=== PATIENT | male | born 1950 | race Caucasian/White ===

== ENCOUNTER 2020-04-24 18:46 | Inpatient (IN) | payer MEDICARE, OTHER, SELFPAY ==
[2020-04-24 18:47] VITALS: BP 130/83; PULSE 88; PULSE 93; RESP 16; TEMP 35.9; O2SAT 100; BMI 23.5
--- NOTE | 2020-04-24 19:38 | ED.DCSUM_ITS ---
History of Present Illness Chief Complaint: Wound Detail of Chief Complaint: Hemorrhagic blister dorsal left thumb IP joint Informant: Patient Onset: Days Context: Gradual Onset Timing: Continuous Quality: Injury gardening several days ago Location: Hemorrhagic blister dorsal left thumb Current Severity: Moderate Maximum Severity: Moderate Worsened by: Possible infection Relieved by: Nothing Associated Symptoms: Increasing size Narrative: Patient is 69-year-old [id number] male presents with injury to his left thumb while gardening several days ago. He had a small dot. He then developed a area of swelling. He was placed on cephalexin. His primary care physician prescribed doxycycline today. He was instructed to follow-up with a surgeon for evaluation and possible drainage. He denies fever, chills night sweats. He is not diabetic. He is on no immunosuppressive meds. He is on no anticoagulant. He denies paresthesia, anesthesia or motor weakness. He complains of range of motion because of swelling. Prior similar symptoms: Yes Recent Illness/Hospitalization: Yes - Past Medical History (1) No significant past medical history Status: Acute Past Medical History - Allergies and Home Meds Allergies/Adverse Reactions: Allergies Sulfa (Sulfonamide Antibiotics) Adverse Reaction (Verified 04/24/20 19:09) HEADACHE headache Primary Care Physician: Gena Paul MD [Primary Care Provider] - Prior records reviewed: No Surgical History: tonsillectomy, - - Thyroid biopsy Lives: Spouse/ Significant Other Smoking Status: Never smoker Alcohol: Rare Drugs: None Review of Systems General: Denies: Chills, Fever, Malaise, Subjective, Sweats Cardiovascular: Denies: Chest pain Respiratory: Denies: Dyspnea, Cough, Sputum Gastrointestinal: Denies: Nausea, Vomiting Musculoskeletal: Reports: Swelling, Extremity Pain Skin: Reports: Wounds Neurological: Denies: Weakness, Parasthesia Hematologic: Denies: Easy bruising, Easy bleeding Physical Exam Vital Signs/Narrative: Vital Signs Temp Pulse Resp BP Pulse Ox 04/24/20 18:47 96.6 F L 88 16 130/83 H 100 Inital Vital Signs reviewed: Yes General: Well nourished, Well developed, No Acute Distress Head: Normocephalic, Atraumatic Eyes: Perrl, EOMI Cardiovascular: Regular rate, Regular rhythm Respiratory: No distress Extremities: No edema, Tenderness - Pain ovation over the hemorrhagic blister. There is swelling of the thumb and slight erythema. There is no induration. There is no lymphangitis. There is no lymphadenopathy.. Negative for: Nontender Skin: Normal color, Rash Neurological: Alert, Oriented x3, Cranial nerves II-XII grossly intact, Normal Strength, Normal Sensation Psychological: Normal affect Procedures Procedure(s): She has what appears to be a superficial hemorrhagic blister. An 11 blade was used to masterson the hemorrhagic blister. There was serosanguineous to bloody drainage. It did not appear purulent. There is still area of fluctuance proximal portion of the blister. The area involvement is the size of a nickel. He is able to extend and flex with no pain in the IP joint. Sensa tion is normal. There is no subungual hematoma or infection of noted under the nail. Since there is an area of fluctuance the thumb was anesthetized by metacarpal block. Incision was made with 11 blade with blunt dissection. More bloody material drained. Did not appear infected. ED Disposition - Plan for ED Patient: Disposition: Home or Assisted Living Diagnosis: Hemorrhagic blister thumb Instructions: ED Wound Puncture General Referrals: Gena Paul MD [Primary Care Provider] - 2 Days for wound check Additional Instructions: 1. Take doxycycline as instructed until gone 2. Do not remove dressing for 24 hours. 3. Change dressing 2-3 times a day 4. If you develop fever and or chills return to the emergency department or see your doctor 5. If you have a red streak going up your thumb into your hand return to the emergency department
[2020-04-24] MEDS: Lidocaine 1% (20 ml mdv) 20 ML Vial INFILT (20:07)
[2020-04-24 23:27] LABS: Absolute Lymphocyte Count 0.62 X10^3/uL (0.83-4.51); Absolute Neutrophil Count 15.4 X10^3/uL (2.0-7.7); Basophil# 0.06 X10^3/uL; Basophil% 0.3 % (0-1); Eosinophil# 0.13 X10^3/uL; Eosinophils% 0.7 % (0-5); Hematocrit 45.3 % (40-54); Hemoglobin 15.2 g/dL (13.0-16.5); Lymphocyte # 0.62 X10^3/ul (4.0); Lymphocyte % 3.5 % (19-41); Mean Corp Hgb Conc 33.6 g/dL (32-36); Mean Corpuscular Hgb 31.5 pg (27.0-32.0); Mean Platelet Vol. 10.5 fl (6.2-12.0); Monocyte% 6.7 % (0-10); NRBC Flagged by Analyzer 0 % (0-5); Neutrophil # 15.41 X10^3/uL (2.7-7.7); Neutrophil % 86.6 % (47-70); Platelet Count 207 K/mm3 (150-450); RBC Distribution Width CV 11.9 % (11.6-14.6); RBC Distribution Width SD 41.5 fl (35.1-43.9); Red Blood Count 4.82 M/mm3 (4.6-6.2); White Blood Count 17.8 K/mm3 (4.4-11.0)
[2020-04-24 23:38] LABS: Anion Gap 5 (5-15); BUN 18 mg/dL (7-18); Chloride 103 mmol/L (98-107); EST Glomerular Filtration Rate 79 mL/min (>60); Est Glom Filt Rate - Afr Amer 96 mL/min (>60); Estimated Creatinine Clearance 81.01 ml/min; Glucose 164 mg/dL (74-106); Potassium 3.8 mmol/L (3.5-5.1); Sodium Level 135 mmol/L (136-145)
[2020-04-25] VITALS (17 sets, daily range): BP systolic 88–115; BP diastolic 53–76; PULSE 59–109; RESP 16–18; TEMP 36.6–37.4; O2SAT 95–100; BMI 22.6; BMI 22.7
[2020-04-25 00:06] LABS: Lactic Acid 2.1 mmol/L (0.4-1.9)
--- NOTE | 2020-04-25 00:08 | ED.VISSUMM ---
- ER Visit Summary Date of Service: 04/25/20 Chief Complaint: [] History of Present Illness: The patient is a 69 M [] Physical Examination: [] Test Results: [] Emergency Department Course and Treatment: [] Treatment Plan: [] Disposition: [] Impression: [] This note was generated with [employer] dictation software. It may contain incorrect words, spelling, and punctuation that were not noted in review of the chart prior to signing ED Disposition - Plan for ED Patient: Disposition: Acute Care Hospital [facility] Diagnosis: Hemorrhagic blister thumb, Severe sepsis, Abscess of thumb, left, Lymphangitis of upper extremity Instructions: ED Wound Puncture General Referrals: Gena Paul MD [Primary Care Provider] - 2 Days for wound check Additional Instructions: 1. Take doxycycline as instructed until gone 2. Do not remove dressing for 24 hours. 3. Change dressing 2-3 times a day 4. If you develop fever and or chills return to the emergency department or see your doctor 5. If you have a red streak going up your thumb into your hand return to the emergency department
--- NOTE | 2020-04-25 00:11 | HP.PCM_ITS ---
Problem List (1) Severe sepsis Status: Acute (2) Abscess of thumb, left Status: Acute (3) Lymphangitis of upper extremity Status: Acute (4) Hyperglycemia Status: Acute (5) Migraines Status: Chronic Qualifiers: Migraine type: unspecified Status migrainosus presence: without status migrainosus Intractability: not intractable Qualified Code(s): G43.909 - Migraine, unspecified, not intractable, without status migrainosus History of Present Illness Date of Admission: 04/25/20 Chief Complaint: L thumb infection The patient is a 69 y/o M w/ PMHx: Migraines noting he only takes sumatriptan ~ 2x annually otherwise healthy, retired from IT, 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[employer] who presents to the [facility] ED on 04/25/20 with history of guarding several days prior with small break in the skin from unclear source, possibly something in the soil versus thorn with increased swelling to the left thumb with outpatient evaluation with PCP with placed on that time of Keflex with continued increase size and discomfort with onset small hemorrhagic appearing blister with PCP reevaluation on day of ED presentation with doxycycline administration with instruction to follow-up with a surgeon however patient had continued worsening discomfort prompting eventual ED presentation on 04/24/2020 with I&D at that time and discharged to home on continue doxycycline however upon discharge within 2 hours patient had onset of red streaking up his left arm prompting ED return. Patient denies having had any fever or chills associated. Patient rated pain as severe, sharp, 10 out of 10 with I&D but otherwise has had dull aching and notes it has been difficult to sleep. Work-up in the ED included temporal T 96.6, heart rate 88, BP 130/83, respiratory rate 16, on a percent on room air, CBC with WC 17.8, hemoglobin 15.2, platelet 207 with significant left shift and concurrent noted lymphopenia, BMP with sodium 135, glucose 164, lactic acid 2.1, blood culture x2 pending per ED. In the ED patient administered Unasyn, vancomycin. Past Medical History Past Medical History (Chronic Problems): Chronic Problems Migraines (Chronic) Allergies Sulfa (Sulfonamide Antibiotics) Adverse Reaction (Verified 04/24/20 19:09) HEADACHE headache Home Medications: Ambulatory Orders Medication Instructions Recorded Doxycycline 100 mg PO BID 11/19/20 Surgical History: tonsillectomy, - - Thyroid biopsy, tonsillectomy, vasectomy, intervention for kidney stones. Lives: Spouse/ Significant Other Smoking Status: Never smoker Tobacco Use: Non-smoker Alcohol: Occasional - Patient notes 1 alcoholic beverage each night with dinner. Drugs: None - *Family History Maternal History Items: - - Patient notes a maternal family history of at age 65 secondary to brain tumor. Paternal History Items: - - Patient notes paternal family history of borderline diabetes, father age 93. Sibling History Items: Heart Disease - Patient notes a brother with a history of cardiac disease. Review of Systems Constitutional: Reports: Malaise, Weakness, Fatigue. Denies: Anorexia, Chills, Fever, Weight Change HEENT: Reports: Head Aches. Denies: Sinus Congestion, Sinus Drainage Cardiovascular: Denies: Chest Pain, Palpitations Respiratory: Denies: Cough, Shortness of breath at rest, Sputum production Gastrointestinal: Denies: Abdominal Pain, Nausea, Vomiting Genitourinary: Denies: Dysuria Musculoskeletal: Reports: Hand Pain, Joint Pain, Joint stiffness, Joint swelling, Joint Tenderness Skin: Reports: Skin Changes, Wounds. Denies: Rash Neurological: Denies: Numbness, Tingling, Focal weakness Psychiatric: Denies: Anxiety, Depression, Homicidal Ideations, Suicidal Ideations Hematologic/ Lymphatic: Denies: Easy Bruising, Easy Bleeding VTE Information - Inpt Only VTE Present on Admission: No VTE Mechan Device Prophylaxis: SCD's VTE Pharm Prophylaxis ordered?: Yes Patient Problems: Active and Suspected Problems No significant past medical history (Acute) Severe sepsis (Acute) Abscess of thumb, left (Acute) Lymphangitis of upper extremity (Acute) Subjective: Patient seated upright in ED bed, fatigued appearance otherwise no acute distress. Objective: Physical Examination: General: awake, alert, oriented x 3 and cooperative, seated upright in the ED bed, fatigued but no acute distress. Skin: normal color, turgor, no icterus, cyanosis except significant left thumb edema, swelling, erythema, status post recent unroofing of hemorrhagic blister per ED, red streaking up the arm to the mid bicep. HEENT: AT/NC, EOMI, PERRLA, mildly dry MM, no carotid bruits or JVD noted. Lungs: CTA bilaterally, moderate effort, mild decrease BL bases, no rales, ronchi or wheezing. Heart: Regular rate and rhythm; no gallop, rub audible. Abdomen: soft, NTTP, ND, normal BS, no HSM. Extremities: no cyanosis or clubbing, see skin. Neurological: patient awake, alert, oriented as noted; cognitive function intact; pupils equally reactive to light and accomodation; cranial nerves II-XII grossly normal, moving all 4 extremities, no focal deficits, strength mildly global decrease secondary to acute presentation as noted. Psychiatric: affect appears mildly fatigued otherwise normal, no acute evidence of depressive or anxiety feelings. - Physical Exam Vitals/I&O's: Vital Signs Temp Pulse Resp BP Pulse Ox 96.6 F L 88 16 130/83 H 100 04/24/20 18:47 04/24/20 18:47 04/24/20 18:47 04/24/20 18:47 04/24/20 18:47 Oxygen Delivery Method Room Air Weight: 178 lb 2.136 oz Body Mass Index (BMI) 23.5 Intake and Output for Last 24 Hours 04/23/20 04/24/20 04/25/20 23:59 23:59 23:59 Intake Total 112 / 112 Balance 112 / 112 Laboratory Results 04/24/20 23:05: WBC 17.8 H, RBC 4.82, Hgb 15.2, Hct 45.3, MCV 94.0, MCH 31.5, MCHC 33.6, RDW Std Deviation 41.5, RDW Coeff of Fredrick 11.9, Plt Count 207, MPV 10.5, Immature Gran % (Auto) 2.200 H, Neut % (Auto) 86.6 H, Lymph % (Auto) 3.5 L , Sutter % (Auto) 6.7, Eos % (Auto) 0.7, Baso % (Auto) 0.3, Absolute Neuts (auto) 15.4 H, Absolute Lymphs (auto) 0.62 L, Nucleated RBC % 0 04/24/20 23:05: Sodium 135 L, Potassium 3.8, Chloride 103, Carbon Dioxide 27.0, Anion Gap 5, BUN 18, Creatinine 1.00, Estim Creat Clear Calc 81.01, Est GFR (MDRD) Af Amer 96, Est GFR (MDRD) Non-Af 79, BUN/Creatinine Ratio 18.0, Glucose 164 H, Calcium 9.0 04/24/20 23:05: Lactic Acid 2.1 H* Current Medications Vancomycin HCl 2,000 mg/ (Sodium Chloride) 540 mls @ 250 mls/hr IV X1 ONE Stop: 04/25/20 01:14 Last Admin: 04/25/20 00:07 Dose: 250 mls/hr Documented by: Assessment/Plan All Active Problems No significant past medical history (Acute) Severe sepsis (Acute) Abscess of thumb, left (Acute) Lymphangitis of upper extremity (Acute) Hyperglycemia (Acute) The patient is a 69 y/o M w/ PMHx: Migraines noting he only takes sumatriptan ~ 2x annually otherwise healthy, retired from IT, 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 1. Severe Sepsis secondary to Acute L Thumb Cellulitis and hemorrhagic blister/abscess: We will admit to MedSurg on telemetry, and lactic acid, continue hydration, maintain n.p.o. status in case of OR needs, will consult Dr. Rosas, continue vancomycin and Unasyn therapy, will obtain wound culture and wound MRSA PCR and de-escalate if appropriate, continue as needed oral and IV pain regimen, encourage elevation of left upper extremity above heart when seated in bed, dressing changes per surgery discretion with wound care consultation. 2. Hyperglycemia: Admission glucose 164, suspect stress response but to be cautious will obtain hemoglobin A1c. 3. Hyponatremia, mild: Possible mild hyponatremia secondary to acute presentation with mild hypokalemia, will judiciously hydrate especially given n.p.o. status, repeat chemistry in AM. 4. Chronic migraines: We will hold patient sumatriptan as he notes he only t akes this occasionally, may administer agent if onset migraine. 5. DVT prophylaxis: Criss Zhang. Inpatient E&M: 35913 Init Hosp L3
--- NOTE | 2020-04-25 01:26 | PCM.RX.CS ---
Consult Pharmacy has been consulted to manage selected antiobiotic: Vancomycin Type of Consult: New start Suspected Infection: Sepsis, Skin/Soft tissue, Osteomyelitis Labs: Sodium 135 mmol/L (136-145) L 04/24/20 23:05 Potassium 3.8 mmol/L (3.5-5.1) 04/24/20 23:05 Chloride 103 mmol/L (98-107) 04/24/20 23:05 Carbon Dioxide 27.0 mmol/L (21.0-32.0) 04/24/20 23:05 Anion Gap 5 (5-15) 04/24/20 23:05 BUN 18 mg/dL (7-18) 04/24/20 23:05 Creatinine 1.00 mg/dL (0.70-1.30) 04/24/20 23:05 Est GFR (MDRD) Af Amer 96 mL/min (>60) 04/24/20 23:05 Est GFR (MDRD) Non-Af 79 mL/min (>60) 04/24/20 23:05 BUN/Creatinine Ratio 18.0 RATIO (-20) 04/24/20 23:05 Glucose 164 mg/dL (74-106) H 04/24/20 23:05 Weight used for dosin.8 kg Estimated Creatinine Clearance: 81 Goal Trough: 10-15 mcg/mL Pharmacy Plan for Drug Dosing: Pharmacy Service will continue to monitor and adjust dosing as required. Medications Vancomycin HCl (Vancomycin) 1,000 mg in 200 mls @ 200 mls/hr IV Q12H BECCA Discontinued Medications Vancomycin HCl 2,000 mg/ (Sodium Chloride) 540 mls @ 250 mls/hr IV X1 ONE Stop: 04/25/20 01:14 Last Admin: 04/25/20 00:07 Dose: 250 mls/hr Documented by: Follow-Up Labs: Trough Vancomycin Labs to be done on [date and time ordered]: 04/26 @ 0930
[2020-04-25] MEDS: 0.9% Normal Saline 1,000 ML 125 ML IV (02:00)
[2020-04-25 03:46] LABS: Reflex Lactate? Y
[2020-04-25 04:04] LABS: M R Staph aureus DNA By PCR Negative (Negative); Probe Check PASS; Specimen Processing Control PASS; Staph aureus DNA By PCR NEGATIVE (Negative)
[2020-04-25 04:44] LABS: Absolute Lymphocyte Count 0.81 X10^3/uL (0.83-4.51); Absolute Neutrophil Count 11.1 X10^3/uL (2.0-7.7); Basophil# 0.03 X10^3/uL; Basophil% 0.2 % (0-1); Eosinophil# 0.31 X10^3/uL; Eosinophils% 2.3 % (0-5); Hematocrit 42.8 % (40-54); Hemoglobin 14.2 g/dL (13.0-16.5); Lymphocyte # 0.81 X10^3/ul (4.0); Mean Corp Hgb Conc 33.2 g/dL (32-36); Mean Corpuscular Hgb 31.5 pg (27.0-32.0); Mean Corpuscular Volume 94.9 fL (80-94); Mean Platelet Vol. 10.2 fl (6.2-12.0); Monocyte# 1.24 X10^3/uL; Monocyte% 9.2 % (0-10); NRBC Flagged by Analyzer 0 % (0-5); Neutrophil # 11.07 X10^3/uL (2.7-7.7); Platelet Count 193 K/mm3 (150-450); RBC Distribution Width CV 11.9 % (11.6-14.6); RBC Distribution Width SD 41.3 fl (35.1-43.9); Red Blood Count 4.51 M/mm3 (4.6-6.2); White Blood Count 13.5 K/mm3 (4.4-11.0)
[2020-04-25 05:01] LABS: ALB/GLOB Ratio 1.2 RATIO (0.9-2.4); AST(SGOT) 17 U/L (15-37); Alanine Aminotransfer ALT/SGPT 23 U/L (16-61); Albumin, Serum 3.3 g/dL (3.2-5.0); Alkaline Phosphatase 78 U/L (45-117); Anion Gap 3 (5-15); BUN 15 mg/dL (7-18); BUN/Creat Ratio 18.5 RATIO (10-20); Calcium,Total 8.3 mg/dL (8.5-10.1); Chloride 106 mmol/L (98-107); Creatinine, Serum 0.81 mg/dL (0.70-1.30); EST Glomerular Filtration Rate 101 mL/min (>60); Est Glom Filt Rate - Afr Amer 122 mL/min (>60); Estimated Creatinine Clearance 97.51 ml/min; Globulin 2.8 g/dL (2.2-4.2); Glucose 104 mg/dL (74-106); Protein, Total 6.1 g/dL (6.4-8.2); Sodium Level 138 mmol/L (136-145)
[2020-04-25 05:04] LABS: Lactic Acid 0.9 mmol/L (0.4-1.9)
[2020-04-25 07:19] LABS: Hemoglobin A1c 5.4 % (3.8-5.6)
--- NOTE | 2020-04-25 10:15 | CASEMGMT ---
RN CM Face to Face with patient for initial transition planning/care coordination assessment. RN CM introduced self and role at [facility]. Patient lying in bed, alert and oriented. Patient willing to participate in assessment and is able to answer all questions appropriately. Care providers, pharmacy, and demographics verified. Patient wishes to discharge home, denies need for home health at this time. Patient states he has no further needs or concerns at this time. CM to follow for discharge planning needs that may arise. PCP: [facility] Specialists: none [facility] Prescription Benefit: yes Living Will/HPOA: yes, Portia Mann LNOK: Living Arrangements: Patient lives with in a 2 story townhouse with 1 step to enter the home. Bed and bath on first floor. Patient states he is independent at home. Transportation: self/ DME/HHC: Pateint denies DME or previous HHC. Disposition Plan: Patient to discharge home with family support and follow-up plans. Aggie MAX, RN, CM
--- NOTE | 2020-04-25 11:40 | CON.PCM_ITS ---
Reason for Consult Date of Consultation: 04/25/20 Reason for Consultation: Necrotic left thumb abscess. REFERRING PHYSICIAN: Dr. Palacios. HAND HOSE CUTTER: Dr. Rosas. History of Present Illness: The patient is a 69 y/o M presented to the ED with increasing pain and redness and swelling left thumb. He was initially seen by his PCP who placed him on Keflex and then Doxycycline. The symptomatology worsened which prompted his visit to the ED. His WBC was 17.8. An I&D was done. He was started on Vancomycin and Unasyn. He denies trauma. 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 I was asked to evaluate this patient for surgical options for treatment. Past Medical History Past Medical History (Chronic Problems): Chronic Problems Migraines (Chronic) Allergies Sulfa (Sulfonamide Antibiotics) Adverse Reaction (Verified 04/24/20 19:09) HEADACHE headache Home Medications: Ambulatory Orders Medication Instructions Recorded Doxycycline 100 mg PO BID 04/24/20 Ascorbic Acid [Vitamin C] 1,000 mg PO BIDCM 04/25/20 Multivitamin 1 ea PO DAILY 04/25/20 Sumatriptan Succinate [Imitrex] 50 mg PO .X1 PRN 04/25/20 Surgical History: tonsillectomy, - - Thyroid biopsy, tonsillectomy, vasectomy, intervention for kidney stones. Lives: Spouse/ Significant Other Smoking Status: Never smoker Tobacco Use: Non-smoker Alcohol: Occasional - Patient notes 1 alcoholic beverage each night with dinner. Drugs: None - *Family History Maternal History Items: - - Patient notes a maternal family history of at age 65 secondary to brain tumor. Paternal History Items: - - Patient notes paternal family history of borderline diabetes, father age 93. Sibling History Items: Heart Disease - Patient notes a brother with a history of cardiac disease. Review of Systems Comment: Constitutional: Reports: Malaise, Weakness, Fatigue. Denies: Anorexia, Chills, Fever, Weight Change. HEENT: Reports: Head Aches. Denies: Sinus Congestion, Sinus Drainage. Cardiovascular: Denies: Chest Pain, Palpitations. Respiratory: Denies: Cough, Shortness of breath at rest, Sputum production. Gastrointestinal: Denies: Abdominal Pain, Nausea, Vomiting. Genitourinary: Denies: Dysuria. Musculoskeletal: Reports: Hand Pain, Joint Pain, Joint stiffness, Joint swelling, Joint Tenderness. Skin: Reports: Skin Changes, Wounds. Denies: Rash. Neurological: Denies: Numbness, Tingling, Focal weakness. Psychiatric: Denies: Anxiety, Depression, Homicidal Ideations, Suicidal Ideations. Hematologic/ Lymphatic: Denies: Easy Bruising, Easy Bleeding Patient Problems: Active and Suspected Problems No significant past medical history (Acute) Severe sepsis (Acute) Abscess of thumb, left (Acute) Lymphangitis of upper extremity (Acute) Hyperglycemia (Acute) - Physical Exam Vitals/I&O's: General: awake, alert, oriented x 3 and cooperative. Skin: normal color, turgor, no icterus, cyanosis except significant left thumb edema, swelling, erythema, status post recent unroofing of hemorrhagic blister per ED, red streaking up the arm to the mid bicep. HEENT: EOMI, PERRLA, mildly dry MM. Neck: Supple, nontender. No cervical adenopathy. Lungs: Clear to auscultation. Heart: Regular rate and rhythm. Abdomen: soft, nondistended. Extremities: no cyanosis or clubbing, mild edema left thumb. Patient is right hand dominant. On the dorsum left thumb at the IP joint is a necrotic abscess. Measures 2.5 x 2 cm. Fluctuant. Redness initially extended past the elbow onto the the distal arm. Much improved today. He can flex and extend at the IP joint without difficulty. No sensory deficits. Fingers are warm with good capillary refill. Radial pulses are palpable. No axillary adenopathy. Neurological: cranial nerves II-XII grossly normal/ Psychiatric: affect appears mildly fatigued otherwise normal, no acute evidence of depressive or anxiety feelings. Vital Signs Temp Pulse Resp BP Pulse Ox 98.5 F 66 16 110/74 100 04/25/20 10:03 04/25/20 10:03 04/25/20 10:03 04/25/20 10:03 04/25/20 10:03 Oxygen Delivery Method Room Air Weight: 171 lb 11.841 oz Body Mass Index (BMI) 22.6 Intake and Output for Last 24 Hours 04/23/20 04/24/20 04/25/20 23:59 23:59 23:59 Intake Total 1232.75 / 1232.75 Output Total 950 / 950 Balance 282.75 / 282.75 Laboratory Results 04/24/20 23:05: WBC 17.8 H, RBC 4.82, Hgb 15.2, Hct 45.3, MCV 94.0, MCH 31.5, MC HC 33.6, RDW Std Deviation 41.5, RDW Coeff of Fredrick 11.9, Plt Count 207, MPV 10.5, Immature Gran % (Auto) 2.200 H, Neut % (Auto) 86.6 H, Lymph % (Auto) 3.5 L, [place] % (Auto) 6.7, Eos % (Auto) 0.7, Baso % (Auto) 0.3, Absolute Neuts (auto) 15.4 H, Absolute Lymphs (auto) 0.62 L, Nucleated RBC % 0 04/24/20 23:05: Sodium 135 L, Potassium 3.8, Chloride 103, Carbon Dioxide 27.0, Anion Gap 5, BUN 18, Creatinine 1.00, Estim Creat Clear Calc 81.01, Est GFR (M DRD) Af Amer 96, Est GFR (MDRD) Non-Af 79, BUN/Creatinine Ratio 18.0, Glucose 164 H, Calcium 9.0 04/24/20 23:05: Lactic Acid 2.1 H* 04/25/20 02:00: S.aureus Protein A PCR NEGATIVE, MRSA (PCR) Negative 04/25/20 04:30: WBC 13.5 H, RBC 4.51 L, Hgb 14.2, Hct 42.8, MCV 94.9 H, MCH 31.5, MCHC 33.2, RDW Std Deviation 41.3, RDW Coeff of Fredrick 11.9, Plt Count 193, MPV 10.2, Immature Gran % (Auto) 0.300, Neut % (Auto) 82.0 H, Lymph % (Auto) 6.0 L, [place] % (Auto) 9.2, Eos % (Auto) 2.3, Baso % (Auto) 0.2, Absolute Neuts (auto) 11.1 H, Absolute Lymphs (auto) 0.81 L, Nucleated RBC % 0 04/25/20 04:30: Sodium 138, Potassium 4.0, Chloride 106, Carbon Dioxide 29.0, Anion Gap 3 L, BUN 15, Creatinine 0.81, Estim Creat Clear Calc 97.51, Est GFR (MDRD) Af Amer 122, Est GFR (MDRD) Non-Af 101, BUN/Creatinine Ratio 18.5, Glucose 104, Calcium 8.3 L, Total Bilirubin 2.50 H, AST 17, ALT 23, Alkaline Phosphatase 78, Total Protein 6.1 L, Albumin 3.3, Globulin 2.8, Albumin/Globulin Ratio 1.2 04/25/20 04:30: Hemoglobin A1c 5.4 04/25/20 04:30: Lactic Acid 0.9 Current Medications Acetaminophen (Acetaminophen 325 Mg Tablet) 650 mg PO Q6H PRN PRN PRN Reason: Pain Score 1-10/Temp > 100.7 F Hydralazine HCl (Hydralazine 20 Mg/Ml Vial) 10 mg IV Q4H PRN PRN PRN Reason: SBP > 160 Ampicillin Sodium/Sulbactam (Sodium 3 gm/ Sodium Chloride) 112 mls @ 150 mls/hr IV Q6 BECCA Last Infusion: 04/25/20 06:46 Dose: Infused Documented by: Vancomycin IV Pharmacy to Dose (1 ea/ Sodium Chloride) 500 mls @ 250 mls/hr IV X1 PRN; Protocol PRN Reason: Rx to Dose Vancomycin HCl (Vancomycin) 1,000 mg in 200 mls @ 200 mls/hr IV Q12H BECCA Sodium Chloride () 250 mls @ 15 mls/hr IV .[id number] PRN PRN Reason: Saline Flush Sodium Chloride () 250 mls @ 15 mls/hr IV .[id number] PRN PRN Reason: Additional IVPB Infusion Ondansetron HCl (Ondansetron 4 Mg/2 Ml Vial) 4 mg IV Q8H PRN PRN PRN Reason: NAUSEA/VOMITING Oxycodone HCl (Oxycodone 5 Mg Tablet) 5 mg PO Q4H PRN PRN PRN Reason: Pain Score 4-5 Sodium Chloride (0.9% Saline Lock 10 Ml Syringe) 10 - 40 ml IV UD PRN PRN Reason: SALINE FLUSH Temazepam (Temazepam 15 Mg Capsule) 15 mg PO QHS PRN PRN PRN Reason: INSOMNIA Assessment/Plan All Active Problems Skin necrosis (Acute) No significant past medical history (Acute) Severe sepsis (Acute) Abscess of thumb, left (Acute) Lymphangitis of upper extremity (Acute) Hyperglycemia (Acute) 1. Left thumb abscess with skin necrosis. 2. Lymphangitis. 3. Sepsis. Continue Vancomycin and Unasyn. Patient failed outpatient therapy and developed increasing redness up to his elbow and distal arm which has improved since starting the IV antibiotics. The necrotic tissue needs to be excised and debrided and incision and drainage of the abscess needed. Will leave the wound open and proceed with daily Silver dressing changes. After discharge, followup at the office. If there is a plateau in the healing process, can proceed with delayed closure with skin grafting or skin flap reconstruction. Surgery needs to be done urgently today because of the risk of the abscess extending down to the bone with the risk of osteomyelitis. Also I anticipate the abscess extending down to the tendon which can be weakened by the abscess. A delay in surgery can also lead to stiffness of the thumb which would be problematic with activities of daily living. Surgery will be done today under general anesthesia and tourniquet control. Patient was informed of the risks and complications of the procedure including alternatives to surgery. These were discussed with the patient personally. Patient voices understanding and wishes to proceed. Some of the risks and complications that were discussed included but were not inclusive of failure to diagnose including symptom relief, pain, infection, numbness, stiffness, loss of digit, RSD (CRPS), need for further surgery, contracture, and wound healing problems. Anticipate increased metabolic demands from the infection. Will check a Prealbumin and encourage nutritional supplementation with protein to help the healing process. Will encourage range of motion exercises to minimize stiffness. If stiffness occurs, will need OT for range of motion exercises, strengthening, and edema management. We discussed the current risks associated with COVID-19. While it is understood that there is a community spread of COVID-19, the risk of citlali COVID-19 while at [facility] ([facility]) is very low; however, the risk cannot be completely mitigated because of the community spread of the disease. We discussed in detail the risk of exposure to and/or potential harm posed by the COVID-19 virus with having a surgery/procedure at this time versus the risk of delaying the surgery/procedure. It is not possible to know either the risk of delaying the surgery or procedure or chance of getting an infection with perfect accuracy, but a joint decision was made to proceed at this time with the scheduled surgery/procedure as indicated on the consent form. Patient was notified that we will need to comply with any screening or testing [facility] wishes to perform or that surgery may be delayed for any positive results. Discussed with the patient that I was tested for COVID-19 on 12/06/19 which was negative and on 12/20/19 which was negative and on 01/03/20 which was negative and on 01/17/20 which was negative and on 01/31/20 which was negative and on 02/21/20 which was negative and on 03/13/20 which was negative and on 04/17/20 which was negative. My testing regimen at this time is to be COVID-19 tested every 2 w eeks or so. Procedure Criteria Procedure Type: Elective COVID Risk Discussion: The surgeon/proceduralist and patient have discussed in detail the risk of exposure to and/or potential harm posed by the COVID-19 virus with having a surgery/procedure at this time versus the risk of delaying the surgery/procedure. It is not possible to know either the risk of delaying the surgery or procedure or chance of getting an infection with perfect accuracy, but a joint decision was made between the patient and the surgeon/proceduralist to proceed at this time with the scheduled surgery/procedure as indicated on the consent form. Inpatient E&M: 41719 Init Hosp L3 - -57 Modifier ICD-10 - L02.512, I96, I89.1, A41.9
--- NOTE | 2020-04-25 11:51 | EKG12_ITS ---
Test Reason : PRE OP Blood Pressure : / mmHG Vent. Rate : 070 BPM Atrial Rate : 070 BPM P-R Int : 166 ms QRS Dur : 124 ms QT Int : 422 ms P-R-T Axes : 027 062 011 degrees QTc Int : 455 ms Normal sinus rhythm Normal ECG No previous ECGs available Confirmed by JOLLY BADILLO, TOMAS ([id number]), editor news JAJA ROMERO ([id number]) on 04/29/2020 9:39:47 AM Referred By: Alex Rosas Confirmed By:TOMAS AZEVEDO MD
--- NOTE | 2020-04-25 11:58 | NURSING ---
wound photo: left thumb
[2020-04-25] MEDS: Vancomycin IV 1,000 MG/200 ML BAG 200 MG IV (12:14)
[2020-04-25 14:30] LABS: Probe Check PASS; Specimen Processing Control PASS
[2020-04-25] MEDS: Lidocaine 1% /Epi 1:100 (20ml) 20 ML Vial (15:39)
--- NOTE | 2020-04-25 15:40 | OP.PCM_ITS ---
Report of Operation Date of Procedure: 04/25/20 Pre-Operative Diagnosis: 1. Left thumb abscess with skin necrosis. 2. L ymphangitis. 3. Sepsis. Post-Operative Diagnosis: Same. Surgery/Procedure Performed:: Surgical preparation dorsum left thumb at IP joint with incision and drainage and excisional debridement necrotic abscess (2.76 cm2). Description of Surgical Findings:: The patient is a 69 y/o M presented to the ED with increasing pain and redness and swelling left thumb. He was initially seen by his PCP who placed him on Keflex and then Doxycycline. The symptomatology worsened which prompted his visit to the ED. His WBC was 17.8. An I&D was done. He was started on Vancomycin and Unasyn. He denies trauma. 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 I was asked to evaluate this patient for surgical options for treatment. Patient was informed of the risks and complications of the procedure including alternatives to surgery. These were discussed with the patient personally. Patient voices understanding and wishes to proceed. Some of the risks and complications that were discussed included but were not inclusive of failure to diagnose including symptom relief, pain, infection, numbness, stiffness, loss of digit, RSD (CRPS), need for further surgery, contracture, and wound healing problems. Size of defect dorsum left thumb at IP joint - 2.3 x 1.2 cm. telecom coordinator: None Type of Anesthesia:: General Specimen's removed: Left thumb necrotic abscess to Pathology and Microbiology. Drains: None. Estimated Blood Loss (mL): 5 ml. Description of Procedure: Patient was taken to OR in supine position and was placed under general anesthesia. The left hand was prepped and draped in the usual fashion. SCD's were placed for DVT prophylaxis. Perioperative antibiotics were given intravenously. For the procedure, I wore an N95 mask and wore proper eyewear protection. Using xylocaine with epinephrine, a digital metacarpal block was administered for postoperative pain relief. A tourniquet was placed but will only be inflated if there is a bleeding issue during the dissection. After waiting 5 minutes for the anesthetic to take effect, I proceeded with an incision and drainage around the necrotic abscess dorsum left thumb at IP joint. Some pus was seen in the subcutaneous tissue. Some fat necrosis was seen. The necrotic skin and fat necrosis was excised and debrided. A curette was also used to debride the depth of the infection. The infection extended down to the extensor tendon. No involvement of the joint was noted. Some of the soft tissue was sent to Pathology for analysis to rule out carcinoma and to Microbiology for culture. A positive culture will necessitate antibiotic therapy. The wound was irrigated with saline. Hemostasis was obtained with electrocautery. I did not need to use the tourniquet. The size of the wound after incision and drainage and excisional debridement was 2.3 x 1.2 cm. The wound was dressed with Mepitel nonadherent dressing followed by 4x4 gauze and Betadine and dry Kerlix gauze and a compression kayleigh wrap. Patient tolerated the procedure well and was sent to PACU in satisfactory condition. Patient will be sent upstairs for continued postop care. Will begin Silver dressing changes tomorrow. Grafts/Implants Used: None. - Complications None. - Admit VTE Documentation VTE Present on Admission: No VTE Mechan Device Prophylaxis: SCD's VTE Pharm Prophylaxis ordered?: No Surgery Charges CPT - 72576 ICD-10 - L02.512, I96, S61.002A, A41.9, I89.1 15878 S61.002A, L02.512, I96, A41.9, I89.1
--- NOTE | 2020-04-25 17:01 | PCM.PN.ID ---
Patient Problems: Active and Suspected Problems No significant past medical history (Acute) Severe sepsis (Acute) Abscess of thumb, left (Acute) Lymphangitis of upper extremity (Acute) Hyperglycemia (Acute) - Physical Exam Vitals/I&O's: Vital Signs Temp Pulse Resp BP Pulse Ox 97.8 F 59 L 16 99/57 L 98 04/25/20 16:30 04/25/20 16:30 04/25/20 16:30 04/25/20 16:30 04/25/20 16:30 Oxygen Delivery Method Room Air Weight: 77.9 kg Body Mass Index (BMI) 22.6 Intake and Output for Last 24 Hours 04/23/20 04/24/20 04/25/20 23:59 23:59 23:59 Intake Total 1544.75 / 1544.75 Output Total 950 / 950 Balance 594.75 / 594.75 Microbiology Past 72 Hours 04/25/20 12:20 Mucosa - Nose SARS-CoV-2 Antigen (Rapid) - Final SARS-CoV-2 (COVID 19) 04/25/20 02:00 Wound Abcess - Finger Gram Stain - Final Laboratory Results 04/24/20 23:05: WBC 17.8 H, RBC 4.82, Hgb 15.2, Hct 45.3, MCV 94.0, MCH 31.5, MCHC 33.6, RDW Std Deviation 41.5, RDW Coeff of Fredrick 11.9, Plt Count 207, MPV 10.5, Immature Gran % (Auto) 2.200 H, Neut % (Auto) 86.6 H, Lymph % (Auto) 3.5 L, [place] % (Auto) 6.7, Eos % (Auto) 0.7, Baso % (Auto) 0.3, Absolute Neuts (auto) 15.4 H, Absolute Lymphs (auto) 0.62 L, Nucleated RBC % 0 04/24/20 23:05: Sodium 135 L, Potassium 3.8, Chloride 103, Carbon Dioxide 27.0, Anion Gap 5, BUN 18, Creatinine 1.00, Estim Creat Clear Calc 81.01, Est GFR (MDRD) Af Amer 96, Est GFR (MDRD) Non-Af 79, BUN/Creatinine Ratio 18.0, Glucose 164 H, Calcium 9.0 04/24/20 23:05: Lactic Acid 2.1 H* 04/25/20 02:00: S.aureus Protein A PCR NEGATIVE, MRSA (PCR) Negative 04/25/20 04:30: WBC 13.5 H, RBC 4.51 L, Hgb 14.2, Hct 42.8, MCV 94.9 H, MCH 31.5, MCHC 33.2, RDW Std Deviation 41.3, RDW Coeff of Fredrick 11.9, Plt Count 193, MPV 10.2, Immature Gran % (Auto) 0.300, Neut % (Auto) 82.0 H, Lymph % (Auto) 6.0 L, [place] % (Auto) 9.2, Eos % (Auto) 2.3, Baso % (Auto) 0.2, Absolute Neuts (auto) 11.1 H, Absolute Lymphs (auto) 0.81 L, Nucleated RBC % 0 04/25/20 04:30: Sodium 138, Potassium 4.0, Chloride 106, Carbon Dioxide 29.0, Anion Gap 3 L, BUN 15, Creatinine 0.81, Estim Creat Clear Calc 97.51, Est GFR (MDRD) Af Amer 122, Est GFR (MDRD) Non-Af 101, BUN/Creatinine Ratio 18.5, Glucose 104, Calcium 8.3 L, Total Bilirubin 2.50 H, AST 17, ALT 23, Alkaline Phosphatase 78, Total Protein 6.1 L, Albumin 3.3, Globulin 2.8, Albumin/Globulin Ratio 1.2 04/25/20 04:30: Hemoglobin A1c 5.4 04/25/20 04:30: Lactic Acid 0.9 04/25/20 12:20: COVID-19 (GEORGE) Negative Current Medications Acetaminophen (Acetaminophen 325 Mg Tablet) 650 mg PO Q6H PRN PRN PRN Reason: Pain Score 1-10/Temp > 100.7 F Hydralazine HCl (Hydralazine 20 Mg/Ml Vial) 10 mg IV Q4H PRN PRN PRN Reason: SBP > 160 Ampicillin Sodium/Sulbactam (Sodium 3 gm/ Sodium Chloride) 112 mls @ 150 mls/hr IV Q6 BECCA Last Infusion: 04/25/20 14:07 Dose: Infused Documented by: Vancomycin IV Pharmacy to Dose (1 ea/ Sodium Chloride) 500 mls @ 250 mls/hr IV X1 PRN; Protocol PRN Reason: Rx to Dose Vancomycin HCl (Vancomycin) 1,000 mg in 200 mls @ 200 mls/hr IV Q12H BECCA Last Infusion: 04/25/20 13:29 Dose: Infused Documented by: Sodium Chloride () 250 mls @ 15 mls/hr IV .[id number] PRN PRN Reason: Saline Flush Sodium Chloride () 250 mls @ 15 mls/hr IV .[id number] PRN PRN Reason: Additional IVPB Infusion Ondansetron HCl (Ondansetron 4 Mg/2 Ml Vial) 4 mg IV Q8H PRN PRN PRN Reason: NAUSEA/VOMITING Oxycodone HCl (Oxycodone 5 Mg Tablet) 5 mg PO Q4H PRN PRN PRN Reason: Pain Score 4-5 Sodium Chloride (0.9% Saline Lock 10 Ml Syringe) 10 - 40 ml IV UD PRN PRN Reason: SALINE FLUSH Temazepam (Temazepam 15 Mg Capsule) 15 mg PO QHS PRN PRN PRN Reason: INSOMNIA Medical Necessity - Tobacco Use Smoking Status: Never smoker Tobacco Use: Non-smoker Route of nutrition/ use of supplements: [] Nutritional Intake: [] IV Site: [] Farmer Catheter: [] - Assessment/Plan Antibiotics: [] Assessment/Plan: [] Active and Suspected Problems No significant past medical history (Acute) Severe sepsis (Acute) Abscess of thumb, left (Acute) Lymphangitis of upper extremity (Acute) Hyperglycemia (Acute) Pt gone to surgery this afternoon. Covid Ag (+) but pcr neg, consistent with false positive as otherwise asymptomatic. Discussed with primary team and infection control. Ok to d/c isolation for covid. Will follow as needed, thank you
--- NOTE | 2020-04-25 17:20 | PCM.HOSP.N ---
Hospitalist Note Patient was seen and examined briefly today, he was admitted early this morning for an infection of his left thumb. Patient will be seen today by plastic surgery and will remain on his present antibiotics. I also placed a consultation for infectious diseases to see the patient.
[2020-04-25] MEDS: 0.9% Normal Saline 1,000 ML 999 ML IV (20:59)
[2020-04-26] MEDS: Vancomycin IV 1,000 MG/200 ML BAG 200 MG IV ×2 (00:07→13:08)
[2020-04-26 01:09] VITALS: BMI 22.7
[2020-04-26 01:19] VITALS: BP 93/59; PULSE 71; RESP 16; TEMP 36.7; O2SAT 94
[2020-04-26 05:37] VITALS: BP 111/69; PULSE 64; RESP 16; TEMP 36.9; O2SAT 94
[2020-04-26 05:38] VITALS: BMI 22.7
[2020-04-26 06:22] LABS: Hematocrit 42.8 % (40-54); Hemoglobin 13.8 g/dL (13.0-16.5); Mean Corp Hgb Conc 32.2 g/dL (32-36); Mean Corpuscular Hgb 31.3 pg (27.0-32.0); Mean Corpuscular Volume 97.1 fL (80-94); Mean Platelet Vol. 10.9 fl (6.2-12.0); Platelet Count 175 K/mm3 (150-450); RBC Distribution Width CV 12.4 % (11.6-14.6); RBC Distribution Width SD 44.4 fl (35.1-43.9); Red Blood Count 4.41 M/mm3 (4.6-6.2); White Blood Count 7.3 K/mm3 (4.4-11.0)
[2020-04-26 06:50] LABS: Anion Gap 3 (5-15); BUN 15 mg/dL (7-18); BUN/Creat Ratio 16.8 RATIO (10-20); Calcium,Total 8.1 mg/dL (8.5-10.1); Chloride 110 mmol/L (98-107); Creatinine, Serum 0.89 mg/dL (0.70-1.30); EST Glomerular Filtration Rate 90 mL/min (>60); Est Glom Filt Rate - Afr Amer 109 mL/min (>60); Estimated Creatinine Clearance 88.74 ml/min; Glucose 103 mg/dL (74-106); Potassium 3.8 mmol/L (3.5-5.1); Prealbumin 22.1 mg/dL (20.0-40.0); Sodium Level 142 mmol/L (136-145)
[2020-04-26 10:00] VITALS: BP 108/59; PULSE 65; RESP 18; TEMP 37; O2SAT 96
[2020-04-26] MEDS: Acetaminophen 325 MG Tablet 650 MG PO ×2 (10:08→21:23)
[2020-04-26] MEDS: 0.9% Saline Lock 10 ML Syringe IV ×3 (11:30→21:17)
--- NOTE | 2020-04-26 13:06 | PN.SURG_ITS ---
Patient Problems: Active and Suspected Problems No significant past medical history (Acute) Severe sepsis (Acute) Abscess of thumb, left (Acute) Lymphangitis of upper extremity (Acute) Hyperglycemia (Acute) Subjective: Postop #1 Patient is resting comfortably. Tolerated the Silver dressing change well. - Physical Exam Vitals/I&O's: Vital Signs Temp Pulse Resp BP Pulse Ox 98.6 F 65 18 108/59 L 96 04/26/20 10:00 04/26/20 10:00 04/26/20 10:00 04/26/20 10:00 04/26/20 10:00 Oxygen Delivery Method Room Air Weight: 171 lb 11.841 oz Body Mass Index (BMI) 22.6 Intake and Output for Last 24 Hours 04/24/20 04/25/20 04/26/20 23:59 23:59 23:59 Intake Total 2656.75 / 2756.75 1636 / 1636 Output Total 1075 / 1350 700 / 700 Balance 1581.75 / 1406.75 936 / 936 General: Alert, Oriented x3 HEENT: PERRLA, EOMI Oral: Moist Mucosa Neck: Supple Abdomen: Soft, Non-Distended Skin: Ulcer/ Wound - left thumb wound is stable. No active bleeding noted. No further evidence of infection. Redressed wound with Aquacel Silver. He tolerated the dressing change well. Neurological: Cranial nerves II-XII grossly intact Psych/Mental Status: Normal Affect, Appropriate Microbiology Past 72 Hours 04/25/20 16:04 Tissue - Finger Gram Stain - Final 04/25/20 16:04 Tissue - Finger Wound Culture - Preliminary No growth-Final to follow 04/25/20 02:00 Wound Abcess - Finger Gram Stain - Final 04/25/20 02:00 Wound Abcess - Finger Wound Culture - Preliminary No growth-Final to follow 04/25/20 12:20 Mucosa - Nose SARS-CoV-2 Antigen (Rapid) - Final SARS-CoV-2 (COVID 19) Laboratory Results 04/25/20 12:20: COVID-19 (GEORGE) Negative 04/26/20 05:57: WBC 7.3, RBC 4.41 L, Hgb 13.8, Hct 42.8, MCV 97.1 H, MCH 31.3, MCHC 32.2, RDW Std Deviation 44.4 H, RDW Coeff of Fredrick 12.4, Plt Count 175, MPV 10.9 04/26/20 05:57: Sodium 142, Potassium 3.8, Chloride 110 H, Carbon Dioxide 29.0, Anion Gap 3 L, BUN 15, Creatinine 0.89, Estim Creat Clear Calc 88.74, Est GFR (MDRD) Af Amer 109, Est GFR (MDRD) Non-Af 90, BUN/Creatinine Ratio 16.8, Glucose 103, Calcium 8.1 L, Prealbumin 22.1 04/26/20 11:53: Vancomycin Trough 10.0 Current Medications Acetaminophen (Acetaminophen 325 Mg Tablet) 650 mg PO Q6H PRN PRN PRN Reason: Pain Score 1-10/Temp > 100.7 F Last Admin: 04/26/20 10:08 Dose: 650 mg Documented by: Hydralazine HCl (Hydralazine 20 Mg/Ml Vial) 10 mg IV Q4H PRN PRN PRN Reason: SBP > 160 Hydromorphone HCl (Hydromorphone 1 Mg/Ml Syringe) 1 mg IV Q4H PRN PRN PRN Reason: Pain Score 6-10 Ampicillin Sodium/Sulbactam (Sodium 3 gm/ Sodium Chloride) 112 mls @ 150 mls/hr IV Q6 BECCA Last Infusion: 04/26/20 12:15 Dose: Infused Documented by: Vancomycin IV Pharmacy to Dose (1 ea/ Sodium Chloride) 500 mls @ 250 mls/hr IV X1 PRN; Protocol PRN Reason: Rx to Dose Vancomycin HCl (Vancomycin) 1,000 mg in 200 mls @ 200 mls/hr IV Q12H [facility] Last Infusion: 04/26/20 01:07 Dose: Infused Documented by: Sodium Chloride () 250 mls @ 15 mls/hr IV .[id number] PRN PRN Reason: Saline Flush Sodium Chloride () 250 mls @ 15 mls/hr IV .[id number] PRN PRN Reason: Additional IVPB Infusion Ondansetron HCl (Ondansetron 4 Mg/2 Ml Vial) 4 mg IV Q8H PRN PRN PRN Reason: NAUSEA/VOMITING Oxycodone HCl (Oxycodone 5 Mg Tablet) 5 mg PO Q4H PRN PRN PRN Reason: Pain Score 4-5 Sodium Chloride (0.9% Saline Lock 10 Ml Syringe) 10 - 40 ml IV UD PRN PRN Reason: SALINE FLUSH Last Admin: 04/26/20 11:30 Dose: 10 ml Documented by: Temazepam (Temazepam 15 Mg Capsule) 15 mg PO QHS PRN PRN PRN Reason: INSOMNIA Medical Necessity - Tobacco Use Smoking Status: Never smoker Tobacco Use: Non-smoker Assessment/Plan All Active Problems Skin necrosis (Acute) No significant past medical history (Acute) Severe sepsis (Acute) Abscess of thumb, left (Acute) Lymphangitis of upper extremity (Acute) Hyperglycemia (Acute) 1. Left thumb abscess with skin necrosis. 2. Lymphangitis. 3. Sepsis. Continue Vancomycin and Unasyn. Patient failed outpatient therapy and developed increasing redness up to his elbow and distal arm which has improved since starting the IV antibiotics. Operative wound is stable. No active bleeding seen. No further evidence of infection noted. Redressed wound with Aquacel Silver. WBC now normal at 7.3. Prealbumin was 22.1. Encourage nutritional supplementation with protein to help the healing process. After discharge, followup at the office on Tuesday for another silver dressing change and can instruct the family on the dressing changes. If there is a plateau in the healing process, can proceed with delayed closure with skin grafting or skin flap reconstruction. Will encourage range of motion exercises to minimize stiffness. If stiffness occurs, will need OT for range of motion exercises, strengthening, and edema management.
[2020-04-26 14:04] VITALS: BMI 22.7
--- NOTE | 2020-04-26 14:08 | PCM.RX.CS ---
Consult Pharmacy has been consulted to manage selected antiobiotic: Vancomycin Type of Consult: Follow-up Prior Doses of Antibiotics Received/Current Regimen: currently on 1000mg IV q12h Labs: Sodium 142 mmol/L (136-145) 04/26/20 05:57 Potassium 3.8 mmol/L (3.5-5.1) 04/26/20 05:57 Chloride 110 mmol/L (98-107) H 04/26/20 05:57 Carbon Dioxide 29.0 mmol/L (21.0-32.0) 04/26/20 05:57 Anion Gap 3 (5-15) L 04/26/20 05:57 BUN 15 mg/dL (7-18) 04/26/20 05:57 Creatinine 0.89 mg/dL (0.70-1.30) 04/26/20 05:57 Est GFR (MDRD) Af Amer 109 mL/min (>60) 04/26/20 05:57 Est GFR (MDRD) Non-Af 90 mL/min (>60) 04/26/20 05:57 BUN/Creatinine Ratio 16.8 RATIO (-20) 04/26/20 05:57 Glucose 103 mg/dL (74-106) 04/26/20 05:57 Vancomycin Trough 10.0 ug/mL (5.0-15.0) 04/26/20 11:53 Microbiology: Microbiology 04/25/20 16:04 Tissue - Finger Gram Stain - Final 04/25/20 16:04 Tissue - Finger Wound Culture - Preliminary No growth-Final to follow 04/25/20 02:00 Wound Abcess - Finger Gram Stain - Final 04/25/20 02:00 Wound Abcess - Finger Wound Culture - Preliminary No growth-Final to follow 04/25/20 12:20 Mucosa - Nose SARS-CoV-2 Antigen (Rapid) - Final SARS-CoV-2 (COVID 19) Weight used for dosin.9 kg Estimated Creatinine Clearance: 89ml/min Goal Trough: 10-15 mcg/mL Pharmacy Plan for Drug Dosing: Trough drawn today at 11:53 came back as 10.0. This is within goal range but on the lower end so with next dose will increase to 1250mg IV q12h. Will repeat a trough before the 4th new dose. Pharmacy Service will continue to monitor and adjust dosing as required. Follow-Up Labs: Trough Vancomycin Labs to be done on [date and time ordered]: 04/28/20 0767
[2020-04-26 14:59] VITALS: BP 114/70; PULSE 68; RESP 18; TEMP 36.8; O2SAT 99
--- NOTE | 2020-04-26 15:58 | PN_ITS ---
Patient Problems: Active and Suspected Problems No significant past medical history (Acute) Severe sepsis (Acute) Abscess of thumb, left (Acute) Lymphangitis of upper extremity (Acute) Hyperglycemia (Acute) Subjective: He was seen and examined today, his white blood cell count is normal, patient states he is only taking Tylenol for pain. Patient is afebrile. Patient's PCR was negative for staph and MRSA. - Physical Exam Vitals/I&O's: Vital Signs Temp Pulse Resp BP Pulse Ox 98.2 F 68 18 114/70 99 04/26/20 14:59 04/26/20 14:59 04/26/20 14:59 04/26/20 14:59 04/26/20 14:59 Oxygen Delivery Method Room Air Weight: 77.9 kg Body Mass Index (BMI) 22.6 Intake and Output for Last 24 Hours 04/24/20 04/25/20 04/26/20 23:59 23:59 23:59 Intake Total 2656.75 / 2756.75 1836 / 1836 Output Total 1075 / 1350 700 / 700 Balance 1581.75 / 1406.75 1136 / 1136 General: Alert, Oriented x3, Cooperative, No apparent distress, Well developed, Well nourished HEENT: Atraumatic, PERRLA, EOMI, Normocephalic Oral: Moist Mucosa Neck: Supple, No JVD, Trachea Midline, Thyroid Normal Size and Texture Lungs: Clear to auscultation, Normal air movement, No rhonchi, No wheeze, No rales Cardiovascular: Regular rate, Regular Rhythm, Normal S1, Normal S2, No murmurs, PMI Normal, No rub noted, No Gallop Abdomen: Bowel Sounds Present, Soft, Non Tender, Non-Distended Extremities: No clubbing, No cyanosis, Capillary Refill Less than 3 Seconds Skin: No rashes, - - Patient's left thumb wound was not examined due to the fact it is covered with surgical dressing. Neurological: Cranial nerves II-XII grossly intact, Neuro grossly intact, Senso ry exam intact to light touch and pain, Coordination normal Psych/Mental Status: Normal Affect, Appropriate, Alert and oriented to time, place, person, mood and affect Microbiology Past 72 Hours 04/25/20 16:04 Tissue - Finger Gram Stain - Final 04/25/20 16:04 Tissue - Finger Wound Culture - Preliminary No growth-Final to follow 04/25/20 02:00 Wound Abcess - Finger Gram Stain - Final 04/25/20 02:00 Wound Abcess - Finger Wound Culture - Preliminary No growth-Final to follow 04/25/20 12:20 Mucosa - Nose SARS-CoV-2 Antigen (Rapid) - Final SARS-CoV-2 (COVID 19) Laboratory Results 04/26/20 05:57: WBC 7.3, RBC 4.41 L, Hgb 13.8, Hct 42.8, MCV 97.1 H, MCH 31.3, MCHC 32.2, RDW Std Deviation 44.4 H, RDW Coeff of Fredrick 12.4, Plt Count 175, MPV 1 0.9 04/26/20 05:57: Sodium 142, Potassium 3.8, Chloride 110 H, Carbon Dioxide 29.0, Anion Gap 3 L, BUN 15, Creatinine 0.89, Estim Creat Clear Calc 88.74, Est GFR (MDRD) Af Amer 109, Est GFR (MDRD) Non-Af 90, BUN/Creatinine Ratio 16.8, Glucose 103, Calcium 8.1 L, Prealbumin 22.1 04/26/20 11:53: Vancomycin Trough 10.0 Current Medications Acetaminophen (Acetaminophen 325 Mg Tablet) 650 mg PO Q6H PRN PRN PRN Reason: Pain Score 1-10/Temp > 100.7 F Last Admin: 04/26/20 10:08 Dose: 650 mg Documented by: Hydralazine HCl (Hydralazine 20 Mg/Ml Vial) 10 mg IV Q4H PRN PRN PRN Reason: SBP > 160 Hydromorphone HCl (Hydromorphone 1 Mg/Ml Syringe) 1 mg IV Q4H PRN PRN PRN Reason: Pain Score 6-10 Ampicillin Sodium/Sulbactam (Sodium 3 gm/ Sodium Chloride) 112 mls @ 150 mls/hr IV Q6 BECCA Last Infusion: 04/26/20 12:15 Dose: Infused Documented by: Vancomycin IV Pharmacy to Dose (1 ea/ Sodium Chloride) 500 mls @ 250 mls/hr IV X1 PRN; Protocol PRN Reason: Rx to Dose Sodium Chloride () 250 mls @ 15 mls/hr IV .[id number] PRN PRN Reason: Saline Flush Sodium Chloride () 250 mls @ 15 mls/hr IV .[id number] PRN PRN Reason: Additional IVPB Infusion Vancomycin HCl 1,250 mg/ (Sodium Chloride) 275 mls @ 167 mls/hr IV Q12H BECCA Ondansetron HCl (Ondansetron 4 Mg/2 Ml Vial) 4 mg IV Q8H PRN PRN PRN Reason: NAUSEA/VOMITING Oxycodone HCl (Oxycodone 5 Mg Tablet) 5 mg PO Q4H PRN PRN PRN Reason: Pain Score 4-5 Sodium Chloride (0.9% Saline Lock 10 Ml Syringe) 10 - 40 ml IV UD PRN PRN Reason: SALINE FLUSH Last Admin: 04/26/20 11:30 Dose: 10 ml Documented by: Temazepam (Temazepam 15 Mg Capsule) 15 mg PO QHS PRN PRN PRN Reason: INSOMNIA Medical Necessity - Tobacco Use Smoking Status: Never smoker Tobacco Use: Non-smoker Assessment/Plan All Active Problems Skin necrosis (Acute) No significant past medical history (Acute) Severe sepsis (Acute) Abscess of thumb, left (Acute) Lymphangitis of upper extremity (Acute) Hyperglycemia (Acute) #1 severe sepsis secondary to left thumb cellulitis-organism unknown at this time, status post incision and drainage and debridement of the left thumb postop day #1-continue coverage with Unasyn and vancomycin, await culture results #2 left thumb cellulitis #3 bilirubin elevation-etiology not known, I will do a liver profile tomorrow Inpatient E&M: [id number] [facility] Hosp L2
[2020-04-26 16:21] VITALS: O2SAT 99
[2020-04-26 21:00] VITALS: BP 119/65; PULSE 75; RESP 16; TEMP 36.7; O2SAT 97
[2020-04-26 21:09] VITALS: BMI 22.7
[2020-04-27 03:00] VITALS: BP 108/59; PULSE 52; RESP 16; TEMP 36.7; O2SAT 96
[2020-04-27 09:24] VITALS: BP 130/62; PULSE 62; RESP 16; TEMP 36.6; O2SAT 97
--- NOTE | 2020-04-27 10:06 | PCM.DC ---
- Discharge Diagnoses Current Active Problems: Current Active and Chronic Problems No significant past medical history (Acute) Severe sepsis (Acute) Abscess of thumb, left (Acute) Lymphangitis of upper extremity (Acute) Migraines (Chronic) Hyperglycemia (Acute) You will use the following diet at home:: No restrictions Your food should be the consistency of: Regular Your liquids should be the consistency of: Regular/Thin Discharge Activity: Return to Normal Activity Weight Bearing Status: Full weight bearing Instructions: ED Wound Puncture General Allergies/Adverse Reactions: Allergies Sulfa (Sulfonamide Antibiotics) Adverse Reaction (Verified 04/24/20 19:09) HEADACHE headache Medications to take at Discharge Ascorbic Acid [Vitamin C] 1,000 mg PO BIDCM 04/25/20 Multivitamin 1 ea PO DAILY 04/25/20 Sumatriptan Succinate [Imitrex] 50 mg PO .X1 PRN 04/25/20 Amoxicillin/Potassium Clav [Augmentin 875-125 Tablet] 1 ea PO BIDCM #14 tab 04/27/20 The following prescriptions were given: Amoxicillin/Potassium Clav [Augmentin 875-125 Tablet] 1 ea PO BIDCM #14 tab Transmission Status: Pending to [facility] Primary Care Physician: Gena Paul MD [Primary Care Provider] - 2 Days for wound check Please follow up with your Primary Care Physician in: see Dr. Paul in 1 week Test Results: Test results from this visit will be discussed in further detail at your follow-up appointment, if applicable. Please Follow Up With: Alex Rosas MD When: 04/28/20
[2020-04-27] MEDS: Acetaminophen 325 MG Tablet 650 MG PO (11:18)
--- NOTE | 2020-04-27 18:05 | DS.PCM_ITS ---
Discharge Date and Diagnosis - Problem List Patient Problems: Active and Suspected Problems No significant past medical history (Acute) Severe sepsis (Acute) Abscess of thumb, left (Acute) Lymphangitis of upper extremity (Acute) Hyperglycemia (Acute) Date of Admission: 04/25/20 Date of Discharge: 04/27/20 - Primary Discharge Diagnosis Acute Problems: Active Problems #1 severe sepsis secondary to left thumb cellulitis-organism unknown #2 left thumb cellulitis #3 elevation of bilirubin-etiology unknown - Secondary Discharge Diagnosis Chronic Problems: Chronic Problems Migraines (Chronic) Hospital Course and Treatment Consultations 04/25/20 01:17 Consult: Onc/Wound/professional development manager Routine Comment: Operations: - - Debridement of necrotic abscess and incision and drainage of left thumb Procedures: None Summary of Care Provided: The patient is a 69 year old M seen in the emergency room at [facility] with a chief complaint of swelling of the left thumb, patient developed a darkened necrotic area over his mid left thumb-he thought it was related to working in his backyard. Lab obtained in the emergency room revealed an elevated white blood cell count at 17.8, patient lactic acid was elevated at 2.1. Patient was admitted to [place] [address], he was seen in consultation by general surgery and placed on IV antibiotics. General surgery took the patient to surgery and debrided necrotic tissue from the left thumb and obtain cultures. At the time of his discharge, these cultures showed no growth. On 04/27/2020, patient was seen and examined: On examination he appeared in good health and spirits. Vital signs as documented. Skin warm and dry and without overt rashes. Neck without JVD, neck was supple, trachea midline, thyroid was normal. Lungs clear bilaterally, normal air movement was noted. Heart exam notable for regular rhythm, normal sounds and absence of murmurs, rubs or gallops. Abdomen unremarkable and without evidence of organomegaly, masses, or abdominal aortic enlargement. Bowel sounds are present, abdomen is not distended. Extremities-mild swelling of the patient's left thumb was noted over the distal aspect, no cyanosis was noted, no clubbing was noted. Neuro: Cranial nerves II through XII are grossly intact, no focal motor deficits were noted, sensation to light touch and pinprick intact, motor exam 5/5 throughout. Psych: Patient is alert and oriented x3, he does not appear anxious or depre ssed, he does not appear agitated. Patient was felt to be stable for discharge on 04/27/2020, he was to follow-up with plastic surgery on 04/28/2020. In addition patient had an elevated bilirubin during his hospitalization at 2.5, this will be repeated by plastic surgery on 04/28/2020 with results forwarded to Dr. Paul. I do not know the etiology of the elevated bilirubin. Finally, patient was discharged on a 7-day course of Augmentin. Patient Problems: Active and Suspected Problems No significant past medical history (Acute) Severe sepsis (Acute) Abscess of thumb, left (Acute) Lymphangitis of upper extremity (Acute) Hyperglycemia (Acute) - Physical Exam Vitals/I&O's: Vital Signs Temp Pulse Resp BP Pulse Ox 97.9 F 62 16 130/62 H 97 04/27/20 09:24 04/27/20 09:24 04/27/20 09:24 04/27/20 09:24 04/27/20 09:24 Oxygen Delivery Method Room Air Weight: 77.9 kg Body Mass Index (BMI) 22.6 Intake and Output for Last 24 Hours 04/25/20 04/26/20 04/27/20 23:59 23:59 23:59 Intake Total 2656.75 / 2756.75 3123 / 3123 499 / 499 Output Total 1075 / 1350 700 / 700 Balance 1581.75 / 1406.75 2423 / 2423 499 / 499 Microbiology Past 72 Hours 04/25/20 02:00 Wound Abcess - Finger Gram Stain - Final 04/25/20 02:00 Wound Abcess - Finger Wound Culture - Final No growth aerobically. 04/24/20 23:09 Blood Culture (Wb) - Left Hand Blood Culture - Preliminary No growth in 48 hours. 04/24/20 23:05 Blood Culture (Wb) - Anticubital Right Blood Culture - Preliminary No growth in 48 hours. 04/25/20 16:04 Tissue - Finger Gram Stain - Final 04/25/20 16:04 Tissue - Finger Wound Culture - Preliminary No growth-Final to follow 04/25/20 12:20 Mucosa - Nose SARS-CoV-2 Antigen (Rapid) - Final SARS-CoV-2 (COVID 19) Discharge Activity: Return to Normal Activity Weight Bearing Status: Full weight bearing Home Medications: Medications to take at Discharge Ascorbic Acid [Vitamin C] 1,000 mg PO BIDCM 04/25/20 Multivitamin 1 ea PO DAILY 04/25/20 Sumatriptan Succinate [Imitrex] 50 mg PO .X1 PRN 04/25/20 Amoxicillin/Potassium Clav [Augmentin 875-125 Tablet] 1 ea PO BIDCM #14 tab 04/27/20 Following Prescriptions Were Given to Patient: Amoxicillin/Potassium Clav [Augmentin 875-125 Tablet] 1 ea PO BIDCM #14 tab Transmission Status: Received by [facility] [facility] Primary Care Physician: Gena Paul MD [Primary Care Provider] - 2 Days for wound check Please follow up with your Primary Care Physician in: see Dr. Paul in 1 week Please Follow Up With: Alex Rosas MD When: 04/28/20 Patient Instructions: ED Wound Puncture General Disposition: Home Minutes spent on discharge:: 31 Patient Condition:: Stable Medical Necessity - Tobacco Use Smoking Status: Never smoker Tobacco Use: Non-smoker Meaningful Use Info Meaningful Use Diagnoses (Choose all that apply): None applicable Inpatient E&M: 30889 Dis[facility] Hosp
--- NOTE | 2020-04-28 | ABS_PTH ---
PATIENT: CARLO BRODY LOC: MS3 U#:[id number] AGE/SX: 69/M ROOM: [facility] [place] RE04/25/[address]: Dr. Milton Sarah DO : 1950 BED: 1 DIS: 04/27/2020 SPEC #: [id number] RECD: 04/28/20 11:15 STATUS: MARSHA REQ #: [id number] LUBA: 04/28/20 00:[address]: Alex Rosas DEPT: SURGICAL PATHOLOGY RECD BY: Joaquín Angel ENTERED: 04/28/20 11:15 SP TYPE: Abscess OTHR DR: MD Dr. Alex Lowe MD Dr. Liza D Talampas, MD Dr. Mark Tereletsky, DO Dr. Robert Leininger, MD Tissues: Thumb, NOS Procedures: Surgery Specimen Level IV Comments: @ Ordering doctor for SUIII edited from to @ by JAMEL at 04/28/20 1150 @ Submitting doctor edited from to @ by RGOOD at 04/28/20 1150 HEADER OPERATION: Incision and drainage abscess thumb PRE-OP DIAGNOSIS: Left thumb abscess with skin necrosis TISSUE SUBMITTED: Soft tissue left thumb MICROSCOPIC DIAGNOSIS Skin and soft tissue of left hand, biopsy: Ulceration with associated acute and chronic inflammation. AM:teja 04/29/20 MICROSCOPIC DESCRIPTION Slides are reviewed. GROSS DESCRIPTION Received in fixative is one container labeled with the patient's name and designated soft tissue left thumb. The specimen consists of a discoid fragment of skin measuring 2.3 x 1.2 x 0.2 cm. The cutaneous surface displays an area of cutaneous disruption measuring 1 cm in greatest dimension. The specimen is inked, sectioned and totally submitted in one cassette. / AM:teja 04/28/20 TC:2 CPT: 44517
== END 2020-04-27 11:37 | disposition home or self-care (01) | DRG 854 ==
LOC: ED 19:44 → MS3 04-25 00:45
PROVIDERS: Surgery; Admitting Provider Family Medicine; Emergency Provider Emergency Medicine; PCP Internal Medicine; Visit Provider Internal Medicine
PROC: 0LB80ZZ Excision of Left Hand Tendon, Open Approach (ICD-10-PCS; principal; 2020-04-25 12:50)
DX: A41.9 Sepsis, unspecified organism (principal); E87.1 Hypo-osmolality and hyponatremia; R17 Unspecified jaundice; I96 Gangrene, not elsewhere classified; L03.012 Cellulitis of left finger; R65.20 Severe sepsis without septic shock; G43.909 Migraine, unspecified, not intractable, without status migrainosus; R73.9 Hyperglycemia, unspecified
CPT/HCPCS: 36415; 80048; 80053; 80202; 83036; 83605; 84134; 85025; 85027; 87040; 87070; 87075; 87102; 87205; 87206; 87426; 87635; 87640; 88304; 88305; 93005; 99251; 99284; J7030; J7040; J7050; A4216; G0463; J0295; J2405; U0002

== ENCOUNTER → 2020-04-28 15:59 | Outpatient (CLI) | payer MEDICARE, OTHER, SELFPAY ==
[2020-04-28 15:22] VITALS: BMI 23.0
[2020-04-28 18:06] LABS: AST(SGOT) 17 U/L (15-37); Alanine Aminotransfer ALT/SGPT 33 U/L (16-61); Albumin, Serum 3.8 g/dL (3.2-5.0); Alkaline Phosphatase 85 U/L (45-117); Bilirubin, Direct 0.23 mg/dL (0.00-0.30); Globulin 3.3 g/dL (2.2-4.2); Protein, Total 7.1 g/dL (6.4-8.2)
== END ==
PROVIDERS: PCP Internal Medicine; Referring Provider Surgery; Visit Provider Surgery
DX: E80.6 Other disorders of bilirubin metabolism (principal)
CPT/HCPCS: 36415; 80076

== ENCOUNTER 2020-07-08 09:00 | Outpatient (RCR) | payer MEDICARE, OTHER, SELFPAY ==
[2020-04-28 15:22] VITALS: BMI 23.0
--- NOTE | 2020-06-17 09:30 | HP.OTEVAL_ITS ---
Patient's Visit Information CARLO BRODY is a 69 year old M, referred to Occupational Therapy by Cori Mcclellan, YAMIL-C, with a diagnosis of left thumb open wound. Date of Evaluation: 06/17/20 Occupational Therapist: Karin Cazares, TORIE/Liana, CHT - Subjective This 69 year old male was seen for OT eval with dx of open wound left thumb following I &D. pt states he is having difficlty with ROM and strength of left pinch strength limiting pts ind. with ADls and IADLs. pt would like to return pt to PLOF. - Pain left thumb 2 - ROM IP: right 50* left 25* - Strength [employer]: right 70# left 66# Lateral Pinch: right 11# let 7# Tripod Pinch: right 10# left 8# - Edema Other: right thumb 6.1 left 6.6 - Sensation Sensation Comments: denies - Quick DASH-Disab of Arm,Shoulder& Hand Quick DASH Score: 22.7250 - Goals Goal:: pt will demo a increase in left lateral pinch to 10# to increase pts ind. with ADls and IADLs by d/c Goal:: pt will demo left thumb IP flex to 45* or greater by d/c to increase pts ind. with ADls and IADLs. Goal:: pt will report pain in left thumb no greater than 1/10 with use of left hand with ADls and IADLs by d/c Goal:: pt will demo understanding of scar mtg and desensitization by end of 2nd session. - Rehabilitation General Assessment: pt has underwent I&D and is now demo reduced thumb motion, pain and edema decreasing his ind. with ADls and IADls. Pt would benefit from skilled OT services 1x week for 4 weeks to return pt to PLOF. Today therapist ed. pt on AROM, PROM, IP blocking, scar mtg and desensitization. pt demo understanding and agree to POC Rehabilitation Potential: Excellent - Anticipated Interventions A/AAROM/PROM, Strengthening, Edema Control, Scar Care, Desensitization, Wound Care, Modalities - Visit Plan Frequency: 1x/Week Duration: 4 Weeks TEXT: Thank you for the opportunity to evaluate your patient. For Medicare and Medicare HMO plans, please review the plan of care and approve it. It will need to be FAXED BACK to us at [phone] for Medicare purposes. Please let me know if there are questions or concerns regarding this plan of care. Physician Signature: Date:
== END 2020-07-08 19:00 | disposition home or self-care (01) ==
LOC: OT 09:00
PROVIDERS: PCP Internal Medicine; Referring Provider Nurse Practitioner Family; Visit Provider Nurse Practitioner Family
DX: S61.002D Unspecified open wound of left thumb without damage to nail, subsequent encounter (principal); L02.512 Cutaneous abscess of left hand; I89.1 Lymphangitis
CPT/HCPCS: 97110; 97140; 97166; 97530